=== PATIENT | male | born 1975 | race Caucasian/White ===

== ENCOUNTER 2023-09-22 12:51 | Inpatient (IN) | payer OTHER ==
[2023-09-22] MEDS ORDERED: ONDANSETRON *ODT* 4 MG TABLET SL PRN (14:01)
[2023-09-22] MEDS ORDERED: IBUPROFEN 400 MG TABLET (FP) PO PRN (14:01)
[2023-09-22] MEDS ORDERED: guaiFENesin 600 MG TABLET.ER (FP) PO PRN (14:01)
[2023-09-22] MEDS ORDERED: MAGNESIUM HYDROX 2400MG/30ML ORAL SUSPENSION 30 ML CUP PO PRN (14:01)
[2023-09-22] MEDS ORDERED: BENZOCAINE/MENTHOL (CHLORASEPTIC ) LOZENGE MM PRN (14:01)
[2023-09-22] MEDS ORDERED: BISMUTH SUBSALICYLATE 524 MG/30 ML PO PRN (14:01)
[2023-09-22] MEDS ORDERED: ACETAMINOPHEN 325 MG TABLET (FP) PO PRN (14:01)
[2023-09-22] MEDS ORDERED: LOPERAMIDE HCL 2 MG CAPSULE PO PRN (14:01)
[2023-09-22] MEDS ORDERED: POLYETHYLENE GLYCOL (HEALTHYLAX) 3350 17 GM PACKET PO PRN (14:01)
[2023-09-22] MEDS ORDERED: DICYCLOMINE HCL 10 MG CAPSULE PO PRN (14:01)
[2023-09-22] MEDS ORDERED: IBUPROFEN 600 MG TABLET (FP) PO PRN (14:01)
[2023-09-22] MEDS ORDERED: chlordiazePOXIDE HCL 25 MG CAPSULE PO PRN (14:01)
[2023-09-22] MEDS ORDERED: NALOXONE HCL (KLOXXADO) 8 MG SPRAY NS PRN (14:01)
[2023-09-22] MEDS ORDERED: BENZONATATE 200 MG CAPSULE PO PRN (14:01)
[2023-09-22] MEDS ORDERED: NALOXONE HCL 0.4 MG/ML VIAL IM PRN (14:01)
[2023-09-22] MEDS ORDERED: PRENATAL VITAMINS W/ FOLIC ACID TABLET (FP) PO ONE (15:17)
[2023-09-22] MEDS: PRENATAL VITAMINS W/ FOLIC ACID TABLET (FP) PO SCH (15:19)
[2023-09-22] MEDS ORDERED: ONDANSETRON *ODT* 4 MG TABLET ONE (15:21)
[2023-09-22] MEDS: chlordiazePOXIDE HCL 25 MG CAPSULE PO SCH ×2 (17:23→22:16)
[2023-09-22] MEDS: MAG HYDROX/AL HYDROX/SIMETH 30 ML UNIT-DOSE CUP PO PRN (17:26)
[2023-09-22] MEDS ORDERED: MELATONIN 5 MG TABLETS PO SCH (22:00)
[2023-09-22] MEDS: METHOCARBAMOL 500 MG TABLET PO PRN (22:14)
[2023-09-22] MEDS: hydrOXYzine PAMOATE 25 MG CAPSULE (FP) PO PRN (22:14)
[2023-09-22] MEDS: THIAMINE HCL 100 MG TABLET (FP) PO SCH (22:14)
[2023-09-23] MEDS: chlordiazePOXIDE HCL 25 MG CAPSULE PO SCH ×4 (05:44→22:22)
[2023-09-23] MEDS: PRENATAL VITAMINS W/ FOLIC ACID TABLET (FP) PO SCH (10:13)
[2023-09-23] MEDS: TAMSULOSIN HCL 0.4 MG CAP PO SCH (11:08)
[2023-09-23 11:40] LABS: HEMATOCRIT 40.3 % (35.4-49); HEMOGLOBIN 13.9 GM/dL (11.7-16.9); MCH 33.1 pg (25.7-33.7); MCHC 34.4 g/dl (32.0-35.9); MEAN CELL VOLUME 96.3 fl (80-96); MEAN PLT VOLUME 8.5 fl (7.5-11.1); PLATELET COUNT 160 10^3/uL (134-434); RBC 4.19 M/mm3 (4.00-5.60); WHITE BLOOD COUNT 5.8 K/mm3 (4.0-10.0)
[2023-09-23 12:46] LABS: CHLORIDE 102 mmol/L (98-107); POTASSIUM 3.7 mmol/L (3.5-5.1); SODIUM 138 mmol/L (136-145)
[2023-09-23 12:53] LABS: ALBUMIN 3.3 g/dl (3.4-5.0); ANION GAP 4 mmol/L (4-13); BLOOD UREA NITROGEN 10.1 mg/dL (7-18); CALCIUM 8.5 mg/dL (8.5-10.1); CO2 31 mmol/L (21-32); GLUCOSE,RANDOM 101 mg/dL (74-106)
[2023-09-23 12:56] LABS: CREATININE 0.8 mg/dL (0.55-1.3); SGOT/AST 54 U/L (15-37); SGPT/ALT 36 U/L (13-61)
[2023-09-23 12:58] LABS: BILIRUBIN,TOTAL 1.8 mg/dL (0.2-1); TOT PROT 7.2 g/dl (6.4-8.2)
[2023-09-23 12:59] LABS: ALK PHOS 67 U/L (45-117)
[2023-09-23] MEDS: hydrOXYzine PAMOATE 25 MG CAPSULE (FP) PO PRN ×2 (14:30→22:25)
[2023-09-23] MEDS: SUVOREXANT 5 MG TABLET PO PRN (22:21)
[2023-09-23] MEDS: THIAMINE HCL 100 MG TABLET (FP) PO SCH (22:21)
[2023-09-24] MEDS: chlordiazePOXIDE HCL 25 MG CAPSULE PO SCH ×4 (05:40→22:08)
[2023-09-24] MEDS: PRENATAL VITAMINS W/ FOLIC ACID TABLET (FP) PO SCH (10:04)
[2023-09-24] MEDS: TAMSULOSIN HCL 0.4 MG CAP PO SCH (10:04)
[2023-09-24] MEDS: hydrOXYzine PAMOATE 25 MG CAPSULE (FP) PO PRN ×2 (10:06→22:07)
[2023-09-24] MEDS ORDERED: ALBUTEROL SO4 HFA INHALER IH PRN ×2 (11:01→11:47)
[2023-09-24] MEDS: MAG HYDROX/AL HYDROX/SIMETH 30 ML UNIT-DOSE CUP PO PRN (17:29)
[2023-09-24] MEDS: SUVOREXANT 5 MG TABLET PO PRN (22:05)
[2023-09-24] MEDS: METHOCARBAMOL 500 MG TABLET PO PRN (22:07)
[2023-09-24] MEDS: THIAMINE HCL 100 MG TABLET (FP) PO SCH (22:07)
[2023-09-25] MEDS ORDERED: chlordiazePOXIDE HCL 10 MG CAPSULE PO PRN
[2023-09-25] MEDS: chlordiazePOXIDE HCL 10 MG CAPSULE PO SCH ×4 (05:40→22:05)
[2023-09-25] MEDS: TAMSULOSIN HCL 0.4 MG CAP PO SCH (10:08)
[2023-09-25] MEDS: PRENATAL VITAMINS W/ FOLIC ACID TABLET (FP) PO SCH (10:08)
[2023-09-25] MEDS: THIAMINE HCL 100 MG TABLET (FP) PO SCH (22:04)
[2023-09-25] MEDS: hydrOXYzine PAMOATE 25 MG CAPSULE (FP) PO PRN (22:04)
[2023-09-25] MEDS: METHOCARBAMOL 500 MG TABLET PO PRN (22:04)
[2023-09-25] MEDS: SUVOREXANT 5 MG TABLET PO PRN (22:04)
[2023-09-26] MEDS: chlordiazePOXIDE HCL 10 MG CAPSULE PO SCH ×2 (05:27→17:12)
[2023-09-26] MEDS: TAMSULOSIN HCL 0.4 MG CAP PO SCH (09:16)
[2023-09-26] MEDS: PRENATAL VITAMINS W/ FOLIC ACID TABLET (FP) PO SCH (10:14)
[2023-09-26] MEDS: hydrOXYzine PAMOATE 25 MG CAPSULE (FP) PO PRN (10:17)
[2023-09-26] MEDS: THIAMINE HCL 100 MG TABLET (FP) PO SCH (22:20)
[2023-09-26] MEDS: METHOCARBAMOL 500 MG TABLET PO PRN (22:22)
[2023-09-26] MEDS: SUVOREXANT 5 MG TABLET PO PRN (23:10)
[2023-09-27] MEDS ORDERED: chlordiazePOXIDE HCL 10 MG CAPSULE PO ONE (05:00)
[2023-09-27] MEDS: PRENATAL VITAMINS W/ FOLIC ACID TABLET (FP) PO SCH (10:26)
[2023-09-27] MEDS: hydrOXYzine PAMOATE 25 MG CAPSULE (FP) PO PRN ×2 (10:26→22:11)
[2023-09-27] MEDS: TAMSULOSIN HCL 0.4 MG CAP PO SCH (10:26)
[2023-09-27] MEDS: THIAMINE HCL 100 MG TABLET (FP) PO SCH (22:09)
[2023-09-27] MEDS: SUVOREXANT 5 MG TABLET PO PRN (22:10)
[2023-09-27] MEDS: METHOCARBAMOL 500 MG TABLET PO PRN (22:11)
[2023-09-28] MEDS: PRENATAL VITAMINS W/ FOLIC ACID TABLET (FP) PO SCH (10:15)
[2023-09-28] MEDS: TAMSULOSIN HCL 0.4 MG CAP PO SCH (10:15)
[2023-09-28] MEDS: hydrOXYzine PAMOATE 25 MG CAPSULE (FP) PO PRN (10:16)
[2023-09-28 12:57] VITALS: BP 120/80; PULSE 82; RESP 17; TEMP 98.2
== END 2023-09-28 13:45 | disposition other institution (70) | DRG 775 ==
LOC: YASAS 12:51 → Y3N 15:43
PROVIDERS: ADMIT Allergy & Immunology; ATTEND Surgery
PROC: HZ2ZZZZ Detoxification Services for Substance Abuse Treatment (ICD-10-PCS; principal; 2023-09-22)
DX: F10.230 Alcohol dependence with withdrawal, uncomplicated (principal); F17.210 Nicotine dependence, cigarettes, uncomplicated; G47.00 Insomnia, unspecified; J45.909 Unspecified asthma, uncomplicated; K21.9 Gastro-esophageal reflux disease without esophagitis; N40.0 Benign prostatic hyperplasia without lower urinary tract symptoms
CPT/HCPCS: 36415; 80053; 80307; 85027; 86780; 87635; 87811; 93005; 93010; Q0162